=== PATIENT | female | born 1945 | race Caucasian/White ===

== ENCOUNTER → 2019-10-29 | Outpatient (CLI) | payer OTHER ==
[~2019-10-29] VITALS: Ht 152.4 cm; Wt 66.2 kg
[~2019-10-29] MED LIST: ACTIGALL300 MG PO; AMBIEN 10 MG TA10 MG PO; ATIVAN2 MG PO; CLOBETASOL PROP50 M1 TOP; CLOBETASOL PROP60 G1 TP; DETROL LA4 MG PO; DULOXETINE HCL40 MG PO; EVISTA60 MG PO; FOSAMAX 70 MG T70 M1 PO; HYDROCODONE-AP1 EACH PO; IRON PO; LEVOXYL75 MCG PO; LEVSIN0.125 MG PO; LIBRAX; MOBIC15 MG PO; ONDANSETRON ODT4 MG PO; OXTELLAR XR300 MG PO; PROTONIX40 M2 PO; PURINETHOL50 MG PO; REFRESH CLASSI1 EACH; REQUIP 1 MG TABL1 M1 PO; RESTASIS1 EACH OPHTHALMIC; ROXICODONE5 M2 PO; TUMS ULTRA ST1177 MG PO; ULTRAM 50MG TAB50 MG PO; VITAMIN B12-FO1 EAC1 PO; VITAMIN D250 MCG PO; XANAX 0.25 MG0.25 MG PO
[2019-10-29 11:20] VITALS: BP 115/74
--- NOTE | 2019-10-29 12:00 | NUR ---
Pain Clinic Assessment: 1. History of Osteoarthritis: SPINE HX OF FRACTURES History of Rheumatoid Arthritis: YES 2. Height: 5 ft. 0 in. 152.4 cm. Weight: 146.0 lb. oz. 66.225 kg. Patient's BMI: 28.5 3. Vital Signs: BP: 115/74 Pulse: 95 Resp: 16 Temp: 02 Sat: 96 ECG Mon: 4. Pain Intensity: 9 5. Fall Risk: Dizziness: Y Needs help standing or walking: Y Fallen in the last 3 months: Y Fall risk comments: 6. Patient on Blood Thinner: None 7. History of Hypertension: N 8. Opioid Therapy greater than 6 weeks: Y Opiate Contract Signed: 9. Risk Assessment Tool Provided: 10. Functional Assessment Tool: 11. Recreational Drug Use: Never Drug Type: Tobacco Use: Never Smoker Tobacco Type: Amount or Packs/day: How Many Years: Alcohol Use: No Frequency: Quant:
--- NOTE | 2019-10-30 11:48 | HPC ---
[facility] [address] [address] PAIN MANAGEMENT CONSULTATION Name: QUINTON FRIEDMAN Room #: [facility]#: [id number] Admission: 10/29/19 Attend Phys: Herrera Sol DO Discharge: Date of : 43 Report #: [id number] THIS REPORT FOR: //name// CC: Lynn Carr ANP Herrera Sol DATE OF SERVICE: 10/29/2019 CHIEF COMPLAINT: Bilateral lower extremity pain with paresthesias. HISTORY OF PRESENT ILLNESS: As you know, the patient is a 74-year-old female referred to our clinic for suspected left lumbar radiculopathy. The patient sought evaluation through [facility] where she saw nurse practitioner, Varsha Carr on 10/24/2019. At that time, the patient was complaining of left leg pain radiating down the foot. She was noted during that evaluation to have had a T8, T9 and T12 compression fractures which were in various stages of healing. The patient was evaluated at that visit and determined to be suffering from lumbar radiculopathy causing drop foot on the left side. She was subsequently referred to our clinic to discuss the possibility of undergoing epidural injections. Since that time, the patient has had 2 falls that have now led to low back symptoms and right buttock and posterolateral thigh pain that she states is intense in nature. She comes to us without new imaging to evaluate the source of her left foot drop, but also this recent couple of falls leading to this acute exacerbation of back and right lower extremity symptoms. She does have an extensive history of osteoporosis and spontaneous fractures as indicated above which is concerning for lower lumbar fracture or possibly sacral insufficiency fracture given her distribution of symptoms today. She has been referred to our service to discuss treatment options originally for lumbar radiculopathy. PAST MEDICAL HISTORY: 1. Anxiety disorder. 2. Attention deficit hyperactivity disorder. 3. Bipolar disorder. 4. Depression. 5. Moderately severe OCD. 6. Peptic ulcer disease. 7. Autoimmune hepatitis. 8. Hypothyroidism. 9. Irritable bowel syndrome. 10. Severe osteoporosis. 11. Insomnia. 12. Rheumatoid arthritis. 13. Hypercholesterolemia. 14. Varicose veins. [facility] [address] [place] [address] PAIN MANAGEMENT CONSULTATION Name: QUINTON FRIEDMAN Room #: [facility].#: [id number] Admission: 10/29/19 Attend Phys: Herrera Sol DO Discharge: Date of : 43 Report #: [id number] 15. Cirrhosis of the liver with encephalopathy. 16. Osteoarthritis. 17. Gout. 18. Thyroid disease. PAST SURGICAL HISTORY: 1. Hysterectomy. 2. Right total knee arthroscopy. 3. Liver biopsy. 4. Laryngectomy. 5. Cholecystectomy. 6. Cataracts bilaterally. 7. Bilateral forearm open reduction and internal fixation. 8. Explantation of the fixation devices. 9. Right femur surgery. 10. Achilles tendon repair. 11. Jaw surgery. SOCIAL HISTORY: The patient denies current tobacco use. She is a reformed smoker. Denies IV or illicit drug use. Denies any chronic alcohol use. She is retired, retired about 20 years ago, not receiving workmen's compensation nor is she trying to obtain disability benefits. She is not in litigation in regards to pain. She is accompanied by her son present in room today. REVIEW OF SYSTEMS: Positive for fatigue and weakness, wearing corrective eyewear, cataracts, mouth sores, sore throat, voice changes, shortness of breath with walking or lying flat, heart trouble, palpitations, frequent urination, nocturia, incontinence and dribbling to urine, varicose veins, tremors, memory loss or confusion, nervousness, depression, insomnia, thyroid disease, excessive thirst, urination, heat and cold intolerance, slow to heal after cuts, bleeding and bruising tendencies, anemia, low back pain, bilateral lower extremity pain, osteoporosis. All other review of systems negative per 12-point review of systems other than those listed in history of present illness. Pain impact score 33/70 prior to fall, 60/70 after falls. ALLERGIES: 1. TALWIN. 2. SULFA. CURRENT MEDICATIONS: Ursodiol 300 mg once a day, pantoprazole 40 mg once a day, raloxifene 60 mg once a day, oxcarbazepine 600 mg twice a day, levothyroxine 100 mcg per day, duloxetine 30 mg per day, oxycodone 5 mg every 6 hours p.r.n., ondansetron 4 mg once a day, tramadol 50 mg t.i.d., alprazolam 0.25 mg every 6 hours, vitamin D2 50,000 units every 7 days, ferrous sulfate 325 mg twice a day, Tums 2 tabs once a day, vitamin B12 1000 mcg once a day, Xanax 0.25 mg t.i.d., [address] [address] PAIN MANAGEMENT CONSULTATION Name: QUINTON FRIEDMAN Room #: [facility]#: [id number] Admission: 10/29/19 Attend Phys: Herrera Sol DO Discharge: Date of : 43 Report #: [id number] methocarbamol 750 mg once a day, Lasix 20 mg once a day, isosorbide dinitrate 30 mg once a day, aspirin 81 mg per day, Toprol-XL 25 mg per day, zaleplon 10 mg once a day, Belsomra 20 mg once a day. IMAGING: No imaging of the lumbar spine available. PQRS: The patient has known arthritic changes of the lumbar spine, bilateral hips, bilateral knees with history of osteoporosis. She does have a diagnosis of rheumatoid arthritis. Plate pain intensity 9/10. She is a fall risk, has had multiple falls in the last 3 months. Most recent 2 since 10/24/2019. The patient is not on blood thinners. She is not on treatment for hypertension. She is on chronic opioids, but has a low opioid addiction potential. Pain impact score 33/70, moderate interference of daily activity. PHYSICAL EXAMINATION: VITAL SIGNS: Blood pressure 115/74, pulse 95, respiratory rate 16 and unlabored. The patient is 96% on room air. Height 5 feet tall, weight 146 pounds, BMI calculated 28.5. GENERAL: Well-developed, well-nourished, well-hydrated, 74-year-old female in severe acute distress. Placing current pain score 9/10. HEENT: Normocephalic, atraumatic. Pupils equal, round, reactive to light. Extraocular muscles are intact. NEUROLOGIC: Speech is pressured, but coherent. The patient deemed a good historian. LUNGS: Clear, no wheeze, rhonchi or rales. CARDIOVASCULAR: Regular with no appreciable gallop, no rub. ABDOMEN: Soft, obese, normoactive bowel sounds. EXTREMITIES: Show no clubbing, no cyanosis. There is 1+ nonpitting lower extremity edema noted bilaterally. MUSCULOSKELETAL: The patient is intact to light touch from L1 through S2 dermatomes. Seated straight leg raising is met with increased pain in the low back radiating on the right side. Supine straight leg raising is met with low back pain with right symptoms. Unable to perform the maneuver completely. Neuro reflexes are 2+/4 at patella and Achilles. Ankle clonus negative. Babinski is negative. Palpatory tenderness noted over the paraspinal musculature of lower lumbar spine as well as the sacrum today. ASSESSMENT: 1. History of chronic lumbar radiculopathy. 2. Severe osteoporosis. 3. Intractable pain. PLAN: 1. The patient has been referred to our service originally for what was believed to be a left L5 radiculopathy with left foot drop. The patient indicates this continues but she has sustained 2 falls since 10/24/2019 [place] [address] PAIN MANAGEMENT CONSULTATION Name: QUINTON FRIEDMAN [id number] Admission: 10/29/19 Attend Phys: Herrera Sol DO Discharge: Date of : 43 Report #: [id number] led to increasing low back pain and right buttock and posterolateral thigh pain that is exacerbated with any type of movement concerning for a vertebral compression fracture. As you are aware, the patient has suffered multiple compression fractures and recent falls and is being treated for severe osteoporosis. It is very concerned that there have been changes in the lumbar spine that might preclude epidural injection. We would recommend that further evaluation be performed on this patient. We discussed the possibility of having the patient undergo CT examination here at [facility], but the patient and her son have determined that she would not be able to return to home without some definitive treatment. The patient states that she is unable to ambulate even to stand long enough to transfer from the wheelchair to the toilet and family states they cannot take care of her further. They have opted to be seen at the Emergency Department at [facility] for possible admission, medication treatment for pain control and further evaluation. 2. I have taken the liberty of contacting [facility] ER to advise the patient was on the way. I did voice some of the concerns I have in regards to the physical exam today. I do not see any new neuropathic component of the patient's symptoms, though this cannot be ruled out completely as the patient was unable to participate in most of the provocating testing due to ongoing pain mainly involving low back and right lower extremity. They have agreed to see the patient and further evaluate. 3. I have taken the liberty of contacting nurse practitioner, Rosey Bolaños in regards to this patient as well. Nurse practitioner, Miky indicated that she would be following up with the patient at the Emergency Department and discuss with her attending physician whether or not imaging would be necessary beyond a CT examination. There is a possibility that an MRI might be requested; I will defer to the neurosurgery team if they wish to do that. 3. I have provided the patient with a short dosing of oxycodone, so that she can obtain the medication and utilize medication for pain control as she continues workup through the [facility]. I have given the patient #15 of the oxycodone 5 tablets to take 1-2 as necessary for pain control. Prescription was given to the patient in written form. 4. I have advised the patient we will be more than willing to see her back in followup visit if an epidural injection is indicated. I do wish to have this further evaluation completed before we begin more conservative treatment options. The patient is agreeable. 5. We wish to thank nurse practitioner, Meryl Carr for the opportunity to see the patient in consultation. We will keep you apprised of any treatment options provided through our pain service and whether or not we see her again in followup visit at [facility] for treatment at that facility. [facility] [address] [place] [address] PAIN MANAGEMENT CONSULTATION Name: QUINTON FRIEDMAN Room #: [facility]..#: [id number] Admission: 10/29/19 Attend Phys: Herrera Sol DO Discharge: Date of : 43 Report #: [id number] Again, we wish to thank you for the opportunity to see this patient in consultation. <ELECTRONICALLY SIGNED> By: Herrera Sol DO 10/30/19 [id number] Herrera Sol DO /nt
== END ==
LOC: PAIN 08:45
DX: M79.604 Pain in right leg (principal); M79.605 Pain in left leg; F41.9 Anxiety disorder, unspecified; F32.9 Major depressive disorder, single episode, unspecified; E03.9 Hypothyroidism, unspecified; M06.9 Rheumatoid arthritis, unspecified; E78.00 Pure hypercholesterolemia, unspecified; M54.16 Radiculopathy, lumbar region; M81.0 Age-related osteoporosis without current pathological fracture; G89.4 Chronic pain syndrome